=== PATIENT | male | born 1970 ===

== ENCOUNTER 2022-11-28 11:44 | Emergency (ER) | payer OTHER, SELFPAY ==
[2022-11-28] VITALS (14 sets, daily range): BP systolic 123–148; BP diastolic 86–98; PULSE 95–127; RESP 18; TEMP 36.8; O2SAT 95–99; BMI 23.7
--- NOTE | 2022-11-28 12:15 | ED_ITS ---
HPI - General Adult General Time Seen by Provider: 12:15 Date Seen: 11/28/22 Chief complaint: Cough Stated complaint: chest tightness Time Seen by Provider: 11/28/22 12:14 Source: patient and RN notes reviewed Mode of arrival: ambulatory Limitations: no limitations History of Present Illness HPI narrative: Patient is a 52-year-old male coming in with some chest pressure, chest tightness. He had COVID recently. He started with symptoms on November 13, tested positive November 14. He had severe coughing, was primarily dry. He does worry about pneumonia now. He had a little cough that was productive of some sputum with a little bit of blood in it couple times yesterday. He is not short of breath. He has subsequently tested himself and has tested negative for COVID twice recently. He also reports that he recently came off atenolol for his blood pressure and started another medicine. This was just about a week ago. Said no calf pain or swelling. No diarrhea, no vomiting. He is worried about having pneumonia as a complication of COVID. Related Data Home Medications Medication Instructions Recorded Confirmed duloxetine 20 mg capsule,delayed mg PO 11/28/22 release hydrochlorothiazide 25 mg tablet mg 11/28/22 lisinopril 10 mg tablet mg 11/28/22 Previous Rx's Medication Instructions Recorded azithromycin 250 mg tablet See Rx Instructions PO .COMPLEX #6 11/28/22 tabs Allergies Allergy/AdvReac Type Severity Reaction Status Date / Time No Known Drug Allergies Allergy Verified 11/28/22 11:53 Review of Systems Status of ROS: Reports: 10 or more systems reviewed and unremarkable except as noted in History and below PFSH PFSH Social History Smoking Status: Never smoker How often do you have a drink containing alcohol: 2-3 times a week How many standard drinks containing alcohol do you have on a typical day: 3 or 4 AUDIT-C Alcohol total score: 4 Exam Const: Vital Signs, click to edit/add: Vital Signs - 24 hr 11/28/22 11:50 11/28/22 13:03 11/28/22 13:04 Temperature 98.2 F Pulse Rate 112 H 103 H Pulse Rate [Right Pulse Oximeter] 127 H Respiratory Rate 18 Blood Pressure 125/91 H Blood Pressure [Ri ght Upper Arm] 148/98 H Pulse Oximetry 99 95 96 Oxygen Delivery Me thod Room Air 11/28/22 13:15 11/28/22 13:21 11/28/22 13:30 Temperature Pulse Rate 98 98 99 Pulse Rate [Right Pulse Oximeter] Respiratory Rate Blood Pressure 148/86 H Blood Pressure [Ri ght Upper Arm] Pulse Oximetry 97 98 96 Oxygen Delivery Il thod 11/28/22 13:35 11/28/22 13:45 11/28/22 14:00 Temperature Pulse Rate 107 H 98 108 H Pulse Rate [Right Pulse Oximeter] Respiratory Rate Blood Pressure Blood Pressure [Ri ght Upper Arm] Pulse Oximetry 98 98 97 Oxygen Delivery Il thod 11/28/22 14:05 11/28/22 14:06 Temperature Pulse Rate 99 103 H Pulse Rate [Right Pulse Oximeter] Respiratory Rate Blood Pressure 142/88 H Blood Pressure [Ri ght Upper Arm] Pulse Oximetry 99 99 Oxygen Delivery Il thod Documenting provider has reviewed patient's vital signs: yes Common normals: no apparent distress, average body habitus, oriented x3, no limitations, healthy appearing, alert and well nourished General appearance: cooperative, comfortable, well kempt and well developed HENMT: Common normals: normocephalic, head/scalp atraumatic, hearing grossly normal bilaterally, external ears normal, EAC's normal, TM's normal bilaterally, external nose normal, nasal mucous membranes and turbinates normal, moist oral mucous membranes, oropharynx normal, dentition normal and gingiva normal Head and scalp: normocephalic and atraumatic Nose: external nose normal and nasal mucous membranes and turbinates normal External ear: external ears normal External auditory canal: EAC's normal Tympanic membrane: TM's normal bilaterally Eye: Common normals: PERRL, EOMs intact bilaterally, conjunctivae normal and no scleral icterus Conjunctiva: conjunctiva(e) normal Pupil: PERRL Neck & C-Spine: Common normals: full ROM, no lymphadenopathy, supple, no meningeal signs and no JVD Chest: Common normals: inspection of chest normal and palpation of chest normal Resp: Common normals: normal respiratory effort, no retractions, no use of accessory muscles and clear to auscultation bilaterally Auscultation: clear to auscultation bilaterally Cardio: Common normals: no JVD, regular rhythm, S1 normal heart sound, S2 normal heart sound, no gallops, no murmurs and no rub Rate: tachycardic Rhythm: regular rhythm Heart sounds: S1 normal and S2 normal GI: Common normals: Normal to inspection, nondistended, normoactive bowel sounds present, soft to palpation, non-tender, no hepatosplenomegaly and no masses Palpation: soft and no hepatosplenomegaly Extremity: Common normals: no calf tenderness and no pedal edema Neuro: Common normals: oriented x3 Sensorium/orientation: alert Meningeal signs: no meningeal signs Psych: Appearance: well kempt Course Course Hospital Course: Reviewed options with patient of just proceeding with chest CT PE protocol or awaiting D-dimer and starting with portable chest x-ray. We went over risks benefits and pros and cons of both pathways. We have decided to do a chest CT PE protocol. I do think it is reasonable. He is tachycardic, the picture is murky due to the recent atenolol being stopped as well. With the chest CT PE protocol, he understands that we will be able to look at the lungs closely as well and absolutely look for pneumonia. Right now he is hemodynamically stable outside of some tachycardia, will monitor him here with pulse oximetry. IV will be placed for his CT. He will be getting appropriate labs as well. Reevaluation(s) Reevaluation #1: Reviewed with patient that his troponin is normal. We are awaiting the CT to be read by Radiology at this point. Time: 13:15 Reevaluation #2: Reviewed that his white count is elevated but CT is not showing any pulmonary emboli, no pneumonia. Given the white count is elevated, will send a prescription of antibiotic for him. Did review the incidental finding of stone in the kidney, will give him patient education on kidney stones. He understands that we have no idea if this will ever pass. Time: 14:18 Vital Signs Vital signs: Initial Vital Signs Temperature 98.2 F 11/28/22 11:50 Temperature Source Temporal Artery Scan 11/28/22 11:50 Pulse Rate 127 H 11/28/22 11:50 Respiratory Rate 18 11/28/22 11:50 Blood Pressure 148/98 H 11/28/22 11:50 Blood Pressure Mean 114 11/28/22 11:50 Blood Pressure Position Sitting 11/28/22 11:50 Pulse Oximetry 99 11/28/22 11:50 Oxygen Delivery Method 11/28/22 11:50 Vital Signs Temperature 98.2 F 11/28/22 11:50 Pulse Rate 127 H 11/28/22 11:50 Respiratory Rate 18 11/28/22 11:50 Blood Pressure 148/98 H 11/28/22 11:50 Pulse Oximetry 99 11/28/22 11:50 Oxygen Delivery Method 11/28/22 11:50 Temperature 98.2 F 11/28/22 11:50 Pulse Rate 103 H 11/28/22 14:06 Respiratory Rate 18 11/28/22 11:50 Blood Pressure 142/88 H 11/28/22 14:05 Pulse Oximetry 99 11/28/22 14:06 Oxygen Delivery Method 11/28/22 11:50 Medical Decision Making Lab Data Lab results reviewed: Yes I reviewed the patient's lab results Labs: Lab Results 11/28/22 11/28/22 11/28/22 Range/Units 12:35 12:50 12:50 WBC 13.44 H (4.50-11.00) K/uL RBC 4.87 (4.30-5.90) m/uL Hgb 15.3 (13.5-17.5) gm/dL Hct 44.4 (37.0-53.0) % MCV 91 (80-100) fL MCH 31 (26-34) pg MCHC 35 (32-36) gm/dL RDW Coeff of Levon 12.4 (11.5-15.5) % Plt Count 365 (140-440) K/uL Neut % (Auto) 90.2 H (42.0-72.0) % Lymph % (Auto) 6.3 L (20-44) % Reynolds % (Auto) 3.3 (0.0-11.0) % Eos % (Auto) 0.0 (0.0-7.0) % Baso % (Auto) 0.1 (0.0-3.0) % Neut # (Auto) 12.10 H (1.7-7.0) K/uL Lymph # (Auto) 0.80 L (0.90-2.90) K/uL Reynolds # (Auto) 0.40 (0.00-0.90) K/UL Eos # (Auto) 0.00 (0.00-0.50) K/uL Baso # (Auto) 0.00 (0.00-0.30) K/uL Sodium 136 (135-149) mmol/L Potassium 3.8 (3.6-5.1) mmol/L Chloride 101 (96-114) mmol/L Carbon Dioxide 27 (20-32) mmol/L BUN 12 (7-30) mg/dL Creatinine 0.9 (0.5-1.5) mg/dL Estimated Creat Clear 99.14 Estimated GFR 103 ml/min Glucose 110 (60-115) mg/dL Calcium 9.2 (8.4-10.6) mg/dL Total Bilirubin 0.6 (0.1-1.5) mg/dL AST 32 (12-35) U/L ALT 29 (4-50) U/L Alkaline Phosphatase 91 (40-150) U/L C-Reactive Protein < 0.5 L (0.5-1.0) mg/dL Total Protein 8.2 (6.0-8.3) g/dL Albumin 4.9 (3.3-5.0) g/dL POC Troponin I 0.00 L (0.01-0.04) ng/ml Imaging Data CT scan - chest: Attestation: I have reviewed the pertinent imaging results. Radiologist's impression: Patient: [facility] Facility:?[facility] Patient ID:?[id number] Site Patient ID:?[id number]. Site :?[id number] Study:?CT Chest Angio 95cc Isovue 370-11/28/2022 1:21:28 PM Ordering Physician:Shaylee Augustine Final Report: INDICATION: COUGH, Tachycardia, CHEST PRESSURE, RECENT COVID. TECHNIQUE: CT chest PE was acquired with 95 cc Isovue 370 IV contrast. COMPARISON: None FINDINGS: Pulmonary Arteries: No CT evidence of pulmonary thromboembolic disease. No pulmonary hypertension or right ventricular strain. Heart and Mediastinum: The visualized portions of the thyroid are normal. No axillary or supraclavicular lymphadenopathy. No mediastinal, hilar or retrocrural lymphadenopathy. Normal heart size. Normal caliber aorta. Lungs and Airways: No mass or consolidation. No endoluminal lesion. Pleura: The pleural spaces are normal. Abdomen: Subcentimeter hypodensities in the liver are too small to characterize however statistically represent cysts in the absence of known malignancy. Nonobstructing upper pole 5 millimeter left renal stone. Bones and soft tissues: The skeletal structures and soft tissues of the chest wall are unremarkable. IMPRESSION: 1. No CT evidence of pulmonary thromboembolic disease. 2. No intrathoracic mass or consolidation. Please note that all CT scans at this facility use dose modulation, iterative reconstruction, and/or weight-based dosing when appropriate to reduce radiation dose to as low as reasonably achievable. Dictated by Jacoby Yun MD @ 11/28/2022 2:07:21 PM (Electronic Signature) Critical Care Time Critical Care Time Critical Care Time: No Discharge Plan Discharge Clinical Impression: COVID-19, Elevated WBC count Patient Disposition: Home, Self-Care Condition: Stable Instructions: Kidney Stones (ED), Pneumonia (ED), COVID-19 (Coronavirus Disease 2019) (ED) Additional Instructions: Can try Tylenol and ibuprofen for any discomfort. Your find use [id number] medicines if needed for any cough control. The concern with the elevated white count in the recent setting of COVID would be a developing underlying secondary bacterial infection like pneumonia. We did not see this on chest CT at this time but do not believe it is inappropriate to have you trial antibiotics and see if some of your chest symptoms resolve. Should you develop increasing cough, develops fever, have increased chest pain or any difficulty breathing/shortness of breath, do recommend re-evaluation. Prescriptions: New azithromycin 250 mg tablet See Rx Instructions .ROUTE .COMPLEX Qty: 6 0RF Rx Instructions: For 250 mg dose pack: take 500 mg today (day 1), then 250 mg for 4 days (days 2-5) No Action lisinopril 10 mg tablet Label Comments: TAKE 1 TABLET (10 MG) BY MOUTH DAILY. hydrochlorothiazide 25 mg tablet Label Comments: TAKE 1 TABLET BY MOUTH EVERY DAY duloxetine 20 mg capsule,delayed release(DR/EC) PO Stand Alone Forms: [email or web address] Info Instructions
--- NOTE | 2022-11-28 12:22 | CRLHL7_ITS ---
For Patients: As a result of the Century Cures Act, medical imaging exams and procedure reports are released immediately into your electronic medical record. You may view this report before your referring provider. If you have questions, please contact your health care provider. INDICATION: COUGH, Tachycardia, CHEST PRESSURE, RECENT COVID. TECHNIQUE: CT chest PE was acquired with 95 cc Isovue 370 IV contrast. COMPARISON: None FINDINGS: Pulmonary Arteries: No CT evidence of pulmonary thromboembolic disease. No pulmonary hypertension or right ventricular strain. Heart and Mediastinum: The visualized portions of the thyroid are normal. No axillary or supraclavicular lymphadenopathy. No mediastinal, hilar or retrocrural lymphadenopathy. Normal heart size. Normal caliber aorta. Lungs and Airways: No mass or consolidation. No endoluminal lesion. Pleura: The pleural spaces are normal. Abdomen: Subcentimeter hypodensities in the liver are too small to characterize however statistically represent cysts in the absence of known malignancy. Nonobstructing upper pole 5 millimeter left renal stone. Bones and soft tissues: The skeletal structures and soft tissues of the chest wall are unremarkable. IMPRESSION: 1. No CT evidence of pulmonary thromboembolic disease. 2. No intrathoracic mass or consolidation. Please note that all CT scans at this facility use dose modulation, iterative reconstruction, and/or weight-based dosing when appropriate to reduce radiation dose to as low as reasonably achievable. Dictated by Jacoby Yun MD @ 11/28/2022 2:07:21 PM (Electronically Signed)
[2022-11-28 13:24] LABS: Albumin* 4.9 g/dL (3.3-5.0); Chloride* 101 mmol/L (96-114)
[2022-11-28 13:25] LABS: Potassium* 3.8 mmol/L (3.6-5.1); Sodium* 136 mmol/L (135-149)
[2022-11-28 13:27] LABS: Bilirubin Total* 0.6 mg/dL (0.1-1.5); Creatinine* 0.9 mg/dL (0.5-1.5); Est. Creatinine Clearance* 99.14; Estimated Glomerular Filt Rate 103 ml/min
[2022-11-28 13:28] LABS: Alanine Aminotransferase* 29 U/L (4-50); Alkaline Phosphatase* 91 U/L (40-150); Aspartate Amino Transferase* 32 U/L (12-35); Blood Urea Nitrogen* 12 mg/dL (7-30); Calcium* 9.2 mg/dL (8.4-10.6); Carbon Dioxide* 27 mmol/L (20-32); Glucose* 110 mg/dL (60-115); Total Protein* 8.2 g/dL (6.0-8.3)
[2022-11-28 13:31] LABS: C Reactive Protein* < 0.5 mg/dL (0.5-1.0)
[2022-11-28 13:40] LABS: Basophils Percent Auto 0.1 % (0.0-3.0); Hematocrit 44.4 % (37.0-53.0); Hemoglobin* 15.3 gm/dL (13.5-17.5); Immature Granulocytes Pct Auto 0.1 %; Lymphocytes Percent Auto 6.3 % (20-44); Mean Corpuscular HGB Conc 35 gm/dL (32-36); Mean Corpuscular Hemoglobin 31 pg (26-34); Mean Corpuscular Volume 91 fL (80-100); Monocytes Percent Auto 3.3 % (0.0-11.0); Neutrophils Percent Auto 90.2 % (42.0-72.0); Platelet Count* 365 K/uL (140-440); RDW Coefficient of Variation % 12.4 % (11.5-15.5); Red Blood Count 4.87 m/uL (4.30-5.90); White Blood Count* 13.44 K/uL (4.50-11.00)
[2022-11-28 13:41] LABS: Slide Review Reflex No
== END 2022-11-28 14:50 | disposition home or self-care (01) ==
PROVIDERS: Emergency Provider Family Medicine
DX: U07.1 COVID-19 (principal); D72.829 Elevated white blood cell count, unspecified
CPT/HCPCS: 36415; 71260; 80053; 84484; 85025; 86140; 93005; 94761; 99284; 99285; Q9967